=== PATIENT | male | born 1990 | race Caucasian/White ===

== ENCOUNTER 2025-05-22 16:10 | Outpatient (OUT) | payer OTHER, SELFPAY ==
--- OUTSIDE RECORDS SUMMARY | 2009-03-13 11:00 | XMS_ITS | Continuity of Care Document ---
Author Organization [facility] Address [address] [place] [address] Phone Care Team Providers Care South Asian History Professor Name Role Phone Roby Rivera Unavailable Unavailable Procedures Procedure Date OFFICE/OUTPATIENT VISIT, EST HEP A VACC, PED/ADOL, 2 DOSE TDAP VACCINE >7 IM Advance Directives Directive Yes / No Effective Date File Name No Information Encounters Encounter Description Practice Location Reason(s) For Visit Diagnoses Date Provider Providers Copied on Encounter OFFICE/OUTPATI ENT VISIT, EST [facility], [address], [place], [id number], [place] tel:[phone] [facility] No Information Ren[facility]e. [address], [place], [id number], [place]. tel:[phone] Family History Family Member Type Diagnosis Age At Onset No Information Payers Payer name Insurance type Covered democrat ID Authoriza tion(s) No Information Social History Type Description Quantity Date Captured Comments Sex Male Smoking Status No Information Chief Complaint And Reason For Visit No Information Reason For Referral Reason For Referral No Information History Of Present Illness Encounter Date Complaint History Of Prese nt Illness No Information Functional Status Date Functional Assessmen t No Information Instructions Date Instruction Additional Infor mation No Information Assessments Type Assessment Date No Information Patient Care Teams Name Effective Dates (start - stop) Status Members No Information
--- NOTE | 2025-05-22 16:00 | CA_ITS ---
Patient Name: GIOVANI MAYA MR#: [id number] : 1990 Exam Date: 05/22/2025 Ordering Doctor: DR RUSLAN JAMES M.D. ECHOCARDIOGRAM REPORT PROCEDURE: CA ECHO DOPPLER COMPLETE INDICATIONS: H/o mitral valve repair, vape COMPARISON: None. DESCRIPTION: COMPLETE ECHOCARDIOGRAM Real-time transthoracic echocardiography with 2D, M-mode, spectral and color flow Doppler performed. QUALITY: Technical quality was good. LEFT VENTRICLE: Mild dilatation. Mild eccentric left ventricular hypertrophy. Systolic function is moderately reduced. Estimated left ventricular ejection fraction is 35%. LV EF: Moderately reduced left ventricular ejection fraction, (35%). DIASTOLIC: ATRIAL SEPTUM: Visually appears intact. LEFT ATRIUM: Mild dilatation. RIGHT ATRIUM: Normal chamber size. RIGHT VENTRICLE: Normal chamber size. Normal right ventricular systolic function. TRICUSPID VALVE: Normal mobility and thickness. No stenosis with trivial regurgitation. Doppler studies reveal mildly (35-45) elevated right sided pressures. RVSP 38 mmHg MITRAL VALVE: Status post surgical repair and 20 mm annuloplasty band. Mean diastolic gradient 5.3 mmHg at a heart rate of 71 bpm. Mild mitral regurgitation. Mildly thickened with decreased mobility AORTIC VALVE: Normal trileaflet appearance. No visible sclerosis. Normal leaflet mobility. No evidence of aortic valve stenosis. No aortic regurgitation. AORTIC ROOT: Aortic root is normal in size (3.9 cm). PULMONIC VALVE: Normal thickness and mobility. No stenosis. Trivial regurgitation. PERICARDIUM: No evidence of pericardial effusion. IVC: Collapses with inspiration. IVC is dilated (2.6 cm) PLEURA: CONCLUSION: 1. Mild eccentric left ventricular hypertrophy with moderately reduced systolic function. Estimated LVEF is 35%. 2. Normal right ventricular size and systolic function. 3. Mild left atrial dilatation. 4. Mitral valve status postsurgical repair and annuloplasty band. No significant stenosis. Mild mitral regurgitation. 5. Mildly elevated right-sided pressures. Adult Echocardiography Procedure Report Left Ventricle LVEDD (3.7 - 5.6 cm): 6.03 cm LVESD (2.2 - 4.0 cm): 5.32 cm LVIVS thickness (0.6 - 1.2 cm): 1.17 cm LVPW thickness (0.5 - 1.0 cm): 1.21 cm e': 0.05 m/s E - e': 31.27 LVOT Max Gradient: 1.91 mm[Hg] LVOT Area (cm2): 0.69 m/s Peak Velocity (LVOT): 0.69 m/s Mean Velocity (LVOT): 0.49 m/s LVOT Diameter 2.67 cm Left Atrium LA Volume Index (2D A2C): 73.44 ml/m2 Left Atrium Systolic Dimension: 4.68 cm Mitral Valve MV E to A Ratio: 1.42 Mitral Valve A-Wave Peak Velocity: 1.09 m/s Mitral Valve E-Wave Peak Velocity: 1.56 m/s Right Ventricle Aorta AO Root Diam: 3.94 cm Aortic Valve AoV Area (Peak All): 3.81 cm2, 3.81 cm2 AoV Area (VTI): 3.96 cm2, 3.96 cm2 Peak Velocity(Antegrade Flow): 1.02 m/s Peak Gradient(Antegrade Flow): 4.13 mm[Hg] Mean Velocity(Antegrade Flow): 0.66 m/s Mean Gradient(Antegrade Flow): 2.08 mm[Hg] Velocity Time Integral: 20.87 cm Tricuspid Valve Peak Velocity (Regurgitant Flow): 2.75 m/s Pulmonic Valve Mean Gradient: 1.51 mm[Hg] Mean Velocity: 0.57 m/s Peak Velocity: 0.88 m/s Peak Gradient: 3.11 mm[Hg] Right Atrium Right Atrium Systolic Pressure: 47.54 ml, 47.54 ml Dictated by: Alexandr Campbell M.D. on 05/22/2025 at 20:12 Approved by: Alexandr Campbell M.D. on 05/22/2025 at 20:24
--- OUTSIDE RECORDS SUMMARY | 2025-05-22 16:16 | XMS_ITS | Clinical Summary ---
Author Organization [facility] Address [id number] [address] [place] [address] Care Team Providers Care Supervisor Lump Room Name Role Phone Pcp, Not In System Primary Care Provider Unavail able Allergies No known active allergies Medications MedicationSigDispense QuantityRefillsLast FilledStart DateEnd DateStatus lisinopriL (PRINIVIL,ZESTRIL) 2.5 mg tablet lisinopril 2.5 mg tabletActive metoprolol tartrate (LOPRESSOR) 25 mg tablet metoprolol tartrate 25 mg tabletActive amiodarone (PACERONE) 200 mg tablet amiodarone 200 mg tabletActive Social History Tobacco UseTypesPacks/DayYears UsedDateSmoking Tobacco: Never AssessedChildcare AnswerDate OuzxqvpgAkbhogfsaBmeakqt19/12/2019EmploymentAnswerDate Recorded FclbgjuneqLqkbbny20/12/2019Sex and Gender InformationValueDate RecordedSex Assigned at BirthNot on fileLegal TeyGosw5202/19/2015 12:14 PM EDTGender Identity Not on fileSexual OrientationNot on file Last Filed Vital Signs Vital SignReadingTime TakenCommentsBlood Amqfbkqb352/8204/ 10:03 AM EDT Nevpr6863 10:03 AM SWDHaqjedrntsx04.1 ??C (98.7 ??F)11/12/2021 9:02 AM EDTRespiratory Tzbz8234 10:03 AM EDTOxygen Cpcuswdcke987%11/12/2021 10:03 AM EDTInhaled Oxygen Concentration--Fjmvut26.1 kg (170 lb)11/12/2021 9:02 AM WGFSisdzi611.9 cm (6')11/12/2021 9:02 AM EDTBody Mass Index23.0611/12/2021 9:02 AM EDT Plan of Treatment Not on file Medical Devices Not on file Insurance Care Teams Team MemberRelationshipSpecialtyStart DateEnd Date Pcp, [place] [address] [facility]
--- OUTSIDE RECORDS SUMMARY | 2025-05-22 16:16 | XMS_ITS | Patient Health Record ---
Author Organization [facility] Address [address] [place] [address] Care Team Providers Care Cosmetology Educator Name Role Phone Hattie Prakash Primary Care Provider Reason For Referral No Information Medications Medication SIG (Take, Route, Frequency, Duration) Notes Start Date End Date Status Multivitamin 1 tab oral daily; Duration: 1 mo nth Not-Taking/PRNPotassium Chloride ER 20 MEQ Tablet Extended Release1 tablet with food Orally daily; Duration: 30Not-Taking/PRNFurosemide 40 mg tablet1 tab Oral daily; Duration: 30Not-Taking/PRNAspirin 81 mg tablet2 tab p.o. daily; Duration: 60 daysActiveAmiodarone HCl 200 MG Tablet1 tablet Orally Once a day; Duration: 60 daysActiveLisinopril 2.5 MG Tablet1 tablet Orally twice a day; Duration: 60 daysActiveMetoprolol Tartrate 25 MG Tablet1 tablet with food Orally Twice a day; Duration: 60 daysActiveMulti VitaminActive Social History Tobacco Use: Social History Observation Description Date Details (start date - stop date) Current Smoker NA - NA Sex Assigned At : Social History Observation Description Sex Assigned At Male Social History GeneralSocial InfoQuestionAnswerNotesSubstance abuse/mental health issues of patient/familyPatient -Illegal Drug Use, Caffeine Use, Alcohol, Stress/Anxiety, Depressionsmokes marajuaniaAbility to understand healthcare/treatmentPatient: GoodTobacco Screen:Are you a:current smoker? How often do you smoke cigarettes? every day? How many cigarettes a day do you smoke?11-20? How soon after you wake up do you smoke your first cigarette?within 5 min? 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) ActiveconfirmedProblemLumbar strain (112848630)Lumbar strain (S39.012A)Active confirmedProblemHyperthyroidism (00492861)Hyperthyroidism (E05.90)Active confirmedProblemIron deficiency anemia (45998878)Iron deficiency anemia (D50.9) ActiveconfirmedProblemConstipation (33193380)Constipation, unspecified constipation type (K59.00)ActiveconfirmedProblemHistory of hepatitis C (38051180522119)History of hepatitis C (Z86.19)ActiveconfirmedProblem Hypercalcemia (71412674)Serum calcium elevated (E83.52)Activeconfirmed Plan Of Treatment No Information Medical (General) History Medical History History ICD Code endocarditis stroke y6doqommbaj infection internal, Brain, toe, spleen and kidney d/t heart conditionHeart Murmur, corrected by heart surgeryRosina loo 3undefinedSurgical History Surgery Date(Month/Year) Heart valve surgery 01/26/17 Teeth removed Hospitalization History Reason Date(Month/Year) Surgery 01/26/17
== END 2025-05-22 16:11 | disposition home or self-care (01) ==
LOC: CARD 16:11
PROVIDERS: Visit Provider Internal Medicine Interventional Cardiology
DX: I34.0 Nonrheumatic mitral (valve) insufficiency (principal); Z98.890 Other specified postprocedural states
CPT/HCPCS: 93306; 93356